=== PATIENT | male | born 1955 | race Caucasian/White ===

== ENCOUNTER 2024-12-27 15:36 | Emergency (ER) | payer MEDICARE ==
[2024-12-27] MEDS: Ketorolac 15 MG/ML SDV IVPUSH SCH (16:06)
[2024-12-27] MEDS: Ondansetron 4 MG/2 ML SDV IVPUSH ONE ×2 (16:06→17:09)
[2024-12-27] MEDS ORDERED: Midazolam 1 MG/ML 5 ML SDV IVPUSH PRN (16:34)
[2024-12-27] MEDS: Ketamine 200 MG/20 ML MDV IVPUSH ONE (16:36)
[2024-12-27] MEDS: Prochlorperazine 10 MG/2 ML SDV IVPUSH ONE (17:49)
[2024-12-27] MEDS: Prochlorperazine 10 MG/2 ML SDV ONE (17:55)
== END 2024-12-27 20:03 ==
LOC: LB.ED 15:36
DX: S82.142A Displaced bicondylar fracture of left tibia, initial encounter for closed fracture (principal); Z79.899 Other long term (current) drug therapy; W01.0XXA Fall on same level from slipping, tripping and stumbling without subsequent striking against object, initial encounter; Y93.89 Activity, other specified
CPT/HCPCS: 73560-LT; 96374; 96375; 96376; 99284-25; 99285; A0425; A0428; J0780; J1171; J1885; J2405; J3490; J7030